=== PATIENT | male | born 1990 | race Caucasian/White ===

== ENCOUNTER 2018-03-11 16:31 | Inpatient (IN) | payer MEDICAID, OTHER ==
[~2018-03-11] VITALS: Ht 180.3 cm; Wt 88.9 kg
[2018-03-11] MEDS ORDERED: LORazepam 2 MG TABLET PO ONE (17:15)
[2018-03-11 17:19] LABS: BASOPHILS % (AUTO) 1.2 % (0.0-2.0); EOSINOPHILS % (AUTO) 4.3 % (1.0-6.0); HEMATOCRIT 41.3 % (41-53); HEMOGLOBIN 13.9 g/dL (13.5-17.5); LYMPHOCYTES # (AUTO) 2.2 K/uL (1.0-4.8); LYMPHOCYTES % (AUTO) 22.9 % (22.0-44.0); MEAN CORPUSCULAR HEMOGLOBIN 30.2 pg (26.0-34.0); MEAN CORPUSCULAR HGB CONC 33.7 G/dL (31.0-37.0); MEAN CORPUSCULAR VOLUME 90 fL (80-100); MONOCYTES # (AUTO) 1.1 K/uL (0.1-1.0); MONOCYTES % (AUTO) 11.4 % (2.0-9.0); NEUTROPHILS # (AUTO) 5.7 K/uL (1.8-7.7); NEUTROPHILS % (AUTO) 60.2 % (40.0-70.0); PLATELET COUNT (AUTO) 283 K/uL (150-450); RED BLOOD CELL COUNT(AUTO) 4.61 MIL/uL (4.50-5.90); RED CELL DISTRIBUTION WIDTH 13.3 % (11.5-14.5)
[2018-03-11 17:41] LABS: ANION GAP 10 mmol/L (8-16); CALCIUM, TOTAL 8.9 mg/dL (8.8-10.5); CARBON DIOXIDE 27 mmol/L (22-29); CHLORIDE 102 mmol/L (98-107); CREATININE 1.19 mg/dL (0.60-1.30); GLOMERULAR FILTR. RATE CALC > 60 mL/min (>60); GLUCOSE,RANDOM 93 mg/dL (70-110); POTASSIUM 3.4 mmol/L (3.5-5.1); SODIUM SERUM 139 mmol/L (136-145); UREA NITROGEN, BLOOD 12 mg/dL (7-18)
[2018-03-11 17:47] LABS: ALANINE AMINOTRANSFERASE 31 U/L (12-78); ALKALINE PHOSPHATASE 55 U/L (46-116); ASPARTATE AMINOTRANSFERASE 24 U/L (15-37); BILIRUBIN,TOTAL 0.9 mg/dL (0.1-1.0); TOTAL PROTEIN, SERUM 7.2 g/dL (6.4-8.2)
[2018-03-11] MEDS ORDERED: OLANZapine 5 MG RAPDIS TABLET PO PRN (19:30)
[2018-03-11] MEDS ORDERED: ZOLPIDEM TARTRATE 10 MG TABLET PO PRN (19:30)
[2018-03-11] MEDS ORDERED: POTASSIUM CHLORIDE 20 MEQ ER TABLET PO ONE (20:00)
[2018-03-11] MEDS ORDERED: OLANZapine 5 MG TABLET PO ONE (20:00)
[2018-03-11] MEDS: LORazepam 2 MG TABLET PO PRN (20:01)
[2018-03-11 20:34] VITALS: BP 160/86
[2018-03-11 20:55] LABS: CHOL/HDL RATIO 3.1 (4.2-7.3); CHOLESTEROL 169 mg/dL (131-200); HDL CHOLESTEROL 55 mg/dL (40-60); LDL CHOL (CALC.) 106 mg/dL (0-130); TRIGLYCERIDES 40 mg/dL (15-150)
[2018-03-11] MEDS: OLANZapine 7.5 MG TABLET PO SCH (21:00)
[2018-03-12 08:55] VITALS: BP 97/45
[2018-03-12] MEDS ORDERED: MAG HYDROX/AL HYDROX/SIMETH ES 30 ML SUSPENSION UDCUP PO PRN (11:45)
[2018-03-12] MEDS ORDERED: PROMETHAZINE HCL 25 MG TABLET PO PRN (11:45)
[2018-03-12] MEDS ORDERED: HydrOXYzine PAMOATE 50 MG CAPSULE PO PRN (11:45)
[2018-03-12] MEDS ORDERED: TUBERCULIN, PURIFIED PROTEIN DERIVATIVE 5 TU/0.1 ML SYG ID ONE (11:45)
[2018-03-12] MEDS ORDERED: MAGNESIUM HYDROXIDE SUSPENSION 30 ML UDCUP PO PRN (11:45)
[2018-03-12] MEDS ORDERED: GuaiFENesin/D-METHORPHAN [SUGAR-FREE] 200-20MG/10 ML SYRUP UDCUP PO PRN (11:45)
[2018-03-12] MEDS ORDERED: LOPERAMIDE HCL 2 MG CAPSULE PO PRN (11:45)
[2018-03-12] MEDS ORDERED: ACETAMINOPHEN 325 MG TABLET PO PRN (11:45)
[2018-03-12] MEDS: NICOTINE 21 MG/24 HOUR PATCH TD SCH (12:25)
[2018-03-12 16:38] VITALS: BP 108/60
[2018-03-12] MEDS: THIAMINE HCL 100 MG TABLET PO SCH (16:49)
[2018-03-12] MEDS: OLANZapine 7.5 MG TABLET PO SCH (20:36)
[2018-03-13 08:30] VITALS: BP 97/52
[2018-03-13] MEDS: MULTIVITAMINS WITH MINERALS, THERAPEUTIC TABLET PO SCH (10:59)
[2018-03-13] MEDS: FOLIC ACID 1 MG TABLET PO SCH (10:59)
[2018-03-13] MEDS: FLUoxetine HCL 20 MG CAPSULE PO SCH (11:00)
[2018-03-13] MEDS: NALTREXONE HCL 50 MG TABLET PO SCH (11:00)
[2018-03-13] MEDS: THIAMINE HCL 100 MG TABLET PO SCH ×2 (11:00→16:24)
[2018-03-13] MEDS: NICOTINE 21 MG/24 HOUR PATCH TD SCH (11:02)
[2018-03-13] MEDS: LORazepam 2 MG TABLET PO PRN (16:40)
[2018-03-13] MEDS: OLANZapine 10 MG TABLET PO SCH (20:29)
[2018-03-14] MEDS: NICOTINE 21 MG/24 HOUR PATCH TD SCH (09:00)
[2018-03-14 09:24] VITALS: BP 130/94
[2018-03-14] MEDS: MULTIVITAMINS WITH MINERALS, THERAPEUTIC TABLET PO SCH (11:57)
[2018-03-14] MEDS: FLUoxetine HCL 20 MG CAPSULE PO SCH (11:57)
[2018-03-14] MEDS: NALTREXONE HCL 50 MG TABLET PO SCH (11:57)
[2018-03-14] MEDS: THIAMINE HCL 100 MG TABLET PO SCH ×2 (11:58→17:37)
[2018-03-14] MEDS: FOLIC ACID 1 MG TABLET PO SCH (12:02)
[2018-03-14] MEDS: OLANZapine 10 MG TABLET PO SCH (20:14)
[2018-03-15 00:42] VITALS: BP 137/76
[2018-03-15 08:30] VITALS: BP 138/90
[2018-03-15] MEDS: NICOTINE 21 MG/24 HOUR PATCH TD SCH (09:00)
[2018-03-15] MEDS: NALTREXONE HCL 50 MG TABLET PO SCH (09:37)
[2018-03-15] MEDS: FLUoxetine HCL 20 MG CAPSULE PO SCH (09:37)
[2018-03-15] MEDS: THIAMINE HCL 100 MG TABLET PO SCH ×2 (09:37→16:29)
[2018-03-15] MEDS: MULTIVITAMINS WITH MINERALS, THERAPEUTIC TABLET PO SCH (09:37)
[2018-03-15] MEDS: FOLIC ACID 1 MG TABLET PO SCH (09:38)
[2018-03-15] MEDS: LORazepam 2 MG TABLET PO PRN (15:53)
[2018-03-15 16:25] VITALS: BP 132/79
[2018-03-15] MEDS: OLANZapine 10 MG TABLET PO SCH (20:23)
[2018-03-16] MEDS: NICOTINE 21 MG/24 HOUR PATCH TD SCH (09:00)
[2018-03-16 09:18] VITALS: BP 128/58
[2018-03-16] MEDS: THIAMINE HCL 100 MG TABLET PO SCH ×2 (10:01→17:13)
[2018-03-16] MEDS: FLUoxetine HCL 20 MG CAPSULE PO SCH (10:01)
[2018-03-16] MEDS: NALTREXONE HCL 50 MG TABLET PO SCH (10:02)
[2018-03-16] MEDS: FOLIC ACID 1 MG TABLET PO SCH (10:02)
[2018-03-16] MEDS: MULTIVITAMINS WITH MINERALS, THERAPEUTIC TABLET PO SCH (10:02)
[2018-03-16] MEDS: LORazepam 2 MG TABLET PO PRN (14:20)
[2018-03-16] MEDS: OLANZapine 10 MG TABLET PO SCH (20:35)
[2018-03-17 00:10] VITALS: BP 113/64
[2018-03-17] MEDS: NICOTINE 21 MG/24 HOUR PATCH TD SCH (09:00)
[2018-03-17] MEDS: MULTIVITAMINS WITH MINERALS, THERAPEUTIC TABLET PO SCH (10:04)
[2018-03-17] MEDS: FLUoxetine HCL 20 MG CAPSULE PO SCH (10:04)
[2018-03-17] MEDS: THIAMINE HCL 100 MG TABLET PO SCH ×2 (10:04→16:39)
[2018-03-17] MEDS: NALTREXONE HCL 50 MG TABLET PO SCH (10:04)
[2018-03-17] MEDS: FOLIC ACID 1 MG TABLET PO SCH (10:04)
[2018-03-17] MEDS: LORazepam 2 MG TABLET PO PRN (12:53)
[2018-03-17 17:23] VITALS: BP 118/72
[2018-03-17] MEDS: OLANZapine 10 MG TABLET PO SCH (20:18)
[2018-03-17] MEDS ORDERED: OLANZapine 10 MG TABLET PO SCH (21:00)
[2018-03-18 08:32] VITALS: BP 131/72
[2018-03-18] MEDS: NICOTINE 21 MG/24 HOUR PATCH TD SCH (09:00)
[2018-03-18] MEDS: THIAMINE HCL 100 MG TABLET PO SCH ×2 (09:56→16:24)
[2018-03-18] MEDS: FLUoxetine HCL 20 MG CAPSULE PO SCH (09:56)
[2018-03-18] MEDS: MULTIVITAMINS WITH MINERALS, THERAPEUTIC TABLET PO SCH (09:56)
[2018-03-18] MEDS: NALTREXONE HCL 50 MG TABLET PO SCH (09:56)
[2018-03-18] MEDS: FOLIC ACID 1 MG TABLET PO SCH (09:56)
[2018-03-18] MEDS: LORazepam 2 MG TABLET PO PRN (11:01)
[2018-03-18 16:54] VITALS: BP 121/67
[2018-03-18] MEDS ORDERED: QUEtiapine FUMARATE 100 MG TABLET PO PRN (18:00)
[2018-03-18] MEDS: QUEtiapine FUMARATE 200 MG TABLET PO SCH (20:18)
[2018-03-18] MEDS ORDERED: OLANZapine 10 MG TABLET PO SCH (21:00)
[2018-03-19] MEDS: LORazepam 2 MG TABLET PO PRN ×2 (01:05→14:47)
[2018-03-19 03:34] VITALS: BP 122/69
[2018-03-19 08:47] VITALS: BP 119/59
[2018-03-19] MEDS: NICOTINE 21 MG/24 HOUR PATCH TD SCH (09:00)
[2018-03-19] MEDS: FOLIC ACID 1 MG TABLET PO SCH (10:20)
[2018-03-19] MEDS: FLUoxetine HCL 20 MG CAPSULE PO SCH (10:20)
[2018-03-19] MEDS: THIAMINE HCL 100 MG TABLET PO SCH ×2 (10:20→16:29)
[2018-03-19] MEDS: MULTIVITAMINS WITH MINERALS, THERAPEUTIC TABLET PO SCH (10:20)
[2018-03-19] MEDS: NALTREXONE HCL 50 MG TABLET PO SCH (10:20)
[2018-03-19] MEDS: QUEtiapine FUMARATE 200 MG TABLET PO SCH (20:19)
[2018-03-20] MEDS: NICOTINE 21 MG/24 HOUR PATCH TD SCH (09:00)
[2018-03-20] MEDS: NALTREXONE HCL 50 MG TABLET PO SCH (09:21)
[2018-03-20] MEDS: FOLIC ACID 1 MG TABLET PO SCH (09:21)
[2018-03-20] MEDS: THIAMINE HCL 100 MG TABLET PO SCH ×2 (09:21→16:02)
[2018-03-20] MEDS: FLUoxetine HCL 20 MG CAPSULE PO SCH (09:21)
[2018-03-20] MEDS: MULTIVITAMINS WITH MINERALS, THERAPEUTIC TABLET PO SCH (09:21)
[2018-03-20 10:44] VITALS: BP 110/57
[2018-03-20] MEDS: LORazepam 2 MG TABLET PO PRN (10:52)
[2018-03-20 19:08] VITALS: BP 105/78
[2018-03-20] MEDS: QUEtiapine FUMARATE 200 MG TABLET PO SCH (20:10)
[2018-03-21 08:00] VITALS: BP 122/62
[2018-03-21] MEDS: NICOTINE 21 MG/24 HOUR PATCH TD SCH (09:00)
[2018-03-21] MEDS: FLUoxetine HCL 20 MG CAPSULE PO SCH (10:29)
[2018-03-21] MEDS: NALTREXONE HCL 50 MG TABLET PO SCH (10:29)
[2018-03-21] MEDS: THIAMINE HCL 100 MG TABLET PO SCH ×2 (10:29→17:20)
[2018-03-21] MEDS: FOLIC ACID 1 MG TABLET PO SCH (10:29)
[2018-03-21] MEDS: MULTIVITAMINS WITH MINERALS, THERAPEUTIC TABLET PO SCH (10:29)
[2018-03-21] MEDS: LORazepam 2 MG TABLET PO PRN (14:31)
[2018-03-21 17:19] VITALS: BP 122/73
[2018-03-21] MEDS: QUEtiapine FUMARATE 200 MG TABLET PO SCH (20:38)
[2018-03-22 04:40] VITALS: BP 133/71
[2018-03-22 08:29] VITALS: BP 119/58
[2018-03-22] MEDS ORDERED: NALT50TA6 PO (08:39)
[2018-03-22] MEDS ORDERED: FLUO-191 PO (08:39)
[2018-03-22] MEDS ORDERED: QUET200T PO (08:39)
[2018-03-22] MEDS ORDERED: FLUoxetine HCL 20 MG CAPSULE PO SCH (09:00)
[2018-03-22] MEDS: THIAMINE HCL 100 MG TABLET PO SCH (10:14)
[2018-03-22] MEDS: MULTIVITAMINS WITH MINERALS, THERAPEUTIC TABLET PO SCH (10:14)
[2018-03-22] MEDS: FOLIC ACID 1 MG TABLET PO SCH (10:14)
[2018-03-22] MEDS: NALTREXONE HCL 50 MG TABLET PO SCH (10:15)
[2018-03-22] MEDS: NICOTINE 21 MG/24 HOUR PATCH TD SCH (10:20)
== END 2018-03-22 10:30 | disposition home or self-care (01) | DRG 750 ==
LOC: EMS 16:33 → 3EI 19:30
PROVIDERS: ADMIT Psychiatry & Neurology Psychiatry; ATTEND Psychiatry & Neurology Psychiatry
DX: F25.9 Schizoaffective disorder, unspecified (principal); R45.851 Suicidal ideations; Z59.0 Homelessness; F15.90 Other stimulant use, unspecified, uncomplicated; F41.9 Anxiety disorder, unspecified; Z79.899 Other long term (current) drug therapy
CPT/HCPCS: 99285; G0480